=== PATIENT | female | born 1990 | race Caucasian/White ===

== ENCOUNTER 2025-03-30 19:07 | Emergency (ER) | payer MEDICAID, SELFPAY ==
--- OUTSIDE RECORDS SUMMARY | 2016-02-24 10:30 | XMS_ITS | Encounter Summary ---
Author Organization [facility] Address [address] [place] [address] Care Team Providers Care Immunochemist Name Role Phone Provider, No Known Primary Care Provider [phone] Encounter Details Date Type Department Care Team (Latest Contact Info) Description 02/24/2016 10:30 AM EDT Hospital Encounter [facility] [phone] Diet controlled gestational diabetes mellitus in third trimester; Oligohydramnios in third trimester, antepartum, not applicable or unspecified fetus Social History Tobacco Use Types Packs/Day Years Used Date Smoking Tobacco: Former Cigarettes 0.5 21.5 S tarted: 09/13/2003 Smokeless Tobacco: Never Alcohol Use Standard Drinks/Week Comments No 0 (1 standard drink = 0.6 oz pur e alcohol) Abuse Screen Answer Date Recorded Unsafe at Home or Work/School Not on file Feels Threatened by Someone? Not on file 05/2023 Does Anyone Keep You from Co ntacting Others or Doint Things Outside the Home? Not on file 06/21/2023 Physical Sign of Abuse Present Not on file 1 Housing Stability Answer Date Recorded Current Living Arrangements Not on file 05/2023 Potentially Unsafe Housing Conditions Not on bhupinder e 06/21/2023 Family and Community Support Answer Yoan e Recorded Help with Day-to-Day Activities Not on file 06/21/2023 Lonely or Isolated Not on file 06/21/2023 Employment Answer Date Recorded Do you want help finding or keeping work or a nika b? Not on file 06/21/2023 Disabilities Answer Date Recorded Concentrating, Remembering, or Making Decisions Difficulty Not on file 06/21/2023 Doing Errands Independently Difficulty Not on fi le 06/21/2023 Education Answer Date Recorded Help with school or training? Not on file Preferred Language Not on file 06/21/2023 PHQ-2 Answer Date Recorded Patient Health Questionnaire-2 Score 0 03/14/2025 Comments No Sex and Gender Information Value Date Recorded Sex Assigned at Female 03/12/2025 10:52 AM EDT Legal Sex Female 10:20 AM EDT Gender Identity Not on file Sexual Orientation Not on file documented as of this encounter Functional Status documented as of this encounter Plan of Treatment Upcoming Encounters Date Type Department Care Team (Late st Contact Info) Description 04/02/2025 8:00 AM EDT Office Visit [facility] [address] [place] [address] [place] [address] Lynette Hinojosa LCSW [address] [place], [place] [id number] 06/14/2025 8:00 AM EDT Office Visit [facility] [address] [place] [address] [place] [address] Ifeoma Martinez APRN [address] [place] [address] documented as of this encounter Procedures Procedure Name Priority Date/Time Associated Diagnosis Comments US OB LIMITED 1 + FETUSES Routine 02/24/2016 5:13 PM EDT Diet controlled gestational diabetes mellitus in third trimester Oligohydramnios in third trimester, antepartum, not applicable or unspecified fetus documented in this encounter Results * US ob limited 1 + fetuses (02/24/2016 5:13 PM EDT) Anatomical Region Laterality Modality Body Ultrasound 02/24/2016 6:03 PM EDT Narrative 02/25/2016 10:43 AM EDT PAT NAME: TRACIE SWARTZ MED REC#: [id number] DA: 1990 PAT GEND: F PAT TYPE: O EXAM YOAN: [id number] REF PHYS UGO DANIEL Indication ======== QUINTIN assessment, H/O low QUINTIN. History ====== General History Other prev. surgeries: RS&O, Laser/LEEP Other: H/O PCOS and endometriosis Previous Outcomes 1 Para 0 Method ====== Voluson E6, Transabdominal ultrasound examination. Sufficient. ========= Lafleur . Number of fetuses: 1. Dating ====== GA by stated dating 36 w + 4 d ESTEVAN by stated dating : 03/19/2016 Assigned: Dating performed on 10/11/2015, based on the external assessment Assigned GA 36 w + 4 d Assigned ESTEVAN: 03/19/2016 General Evaluation Cardiac activity: present. FHR 131 bpm. movements: present. Presentation: cephalic. Placenta: Placental site: posterior, fundal. Amniotic fluid: Amount of AF: subjectively low. QUINTIN 6.8 cm. Q1 3.8 cm, Q2 1.3 cm, Q3 1.6 cm. Biometry Biometry Calculated by: Hadlock (CBO-PA-EG-FL) QUINTIN 6.8 cm FHR 131 bpm Maternal Structures Uterus and adnexa normal Hydraulic Chair Assembler Comments Single intrauterine is present QUINTIN is subjectively low at 6.77 cm. Impression ========= Decreased amniotic fluid volume. Recommendation Return for follow-up as clinically indicated. Hydraulic Chair Assembler: Clarice Staley RDMS Physician: Electronically signed by: at: 10:43 Procedure Note Michael Nails MD - 02/26/2016 PAT NAME: TRACIE SWARTZ MED REC#: [id number] DA: [id number] PAT GEND: F PAT TYPE: O EXAM YOAN: [id number] REF PHYS UGO DANIEL Indication ======== QUINTIN assessment, H/O low QUINTIN. History ====== General History Other prev. surgeries:RS&O, Laser/LEEP Other:H/O PCOS and endometriosis Previous Outcomes Gravida1 Para0 Method ====== Voluson E6, Transabdominal ultrasound examination. Sufficient. ========= Lafleur . Number of fetuses: 1. Dating ====== GA by stated dating 36 w + 4 d ESTEVAN by stated dating :03/19/2016 Assigned:Dating performed on 10/11/2015, based on the externalassessment Assigned GA34 w + 4 d Assigned ESTEVAN:03/19/2016 General Evaluation Cardiac activity: present. FHR 131 bpm. movements: present. Presentation: cephalic. Placenta: Placental site: posterior, fundal. Amniotic fluid: Amount of AF: subjectively low. QUINTIN 6.8 cm. Q1 3.8 cm, Q21.3 cm, Q3 1.6 cm. Biometry Biometry Calculated by:Hadlock (ILQ-US-RD-FL) AFI6.8 cm LQE357 bpm Maternal Structures Uterus and adnexa normal Hydraulic Chair Assembler Comments Single intrauterine is present QUINTIN is subjectively low at 6.77 cm. Impression ========= Decreased amniotic fluid volume. Recommendation Return for follow-up as clinically indicated. Hydraulic Chair Assembler: Clarice Staley RDMS Physician: Electronically signed by: at: 10:43 us Ugo Daniel MD G US ORDERABLES Final Re sult documented in this encounter Visit Diagnoses Diagnosis Diet controlled gestational diabetes mellitus in third trimester Oligohydramnios in third trimester, antepartum, not applicable or unspecified fetus documented in this encounter Care Teams Immunochemist Relationship Specialty Start Date End Date Provider, No Known [place] [id number] PCP - General 02/13/16 02/26/16 documented as of this encounter
--- OUTSIDE RECORDS SUMMARY | 2016-06-04 09:32 | XMS_ITS | Encounter Summary ---
Author Organization [facility] Address [address] [place] [address] Care Team Providers Care Underground Heavy Equipment Operator Name Role Phone Brandon Griffin MD Primary Care Provider [phone] Encounter Details Date Type Department Care Team (Latest Contact Info) Description 06/04/2016 9:32 AM EDT Hospital Encounter [facility] [phone] Encounter for insertion of intrauterine contraceptive device; MIrena Social History Tobacco Use Types Packs/Day Years [...] Description 04/02/2025 8:00 AM EDT Office Visit [facility] [address] [place] [address] [place] [address] Lynette Hinojosa LCSW [address] [place] [address] 06/14/2025 8:00 AM EDT Office Visit [facility] [address] [place] [address] [place] [address] Ifeoma Martinez APRN [address] [place] [address] documented as of this encounter Procedures Procedure Name Priority Date/Time Associated Diagnosis Comments US NON-OB TRANSVAGINAL Routine 06/04/2016 10:35 AM EDT Encounter for insertion of intrauterine contraceptive device MIrena documented in this encounter Results * US non-ob transvaginal (06/04/2016 10:35 AM EDT) Anatomical Region Laterality Modality Body Ultrasound 06/04/2016 9:54 AM EDT Narrative 06/04/2016 5:02 PM EDT PAT NAME: TRACIE SWARTZ MED REC#: [id number] DA: 1990 PAT GEND: F PAT TYPE: O EXAM YOAN: [id number] REF PHYS UGO DANIEL Indication ======== Localization of IUD. History ====== General History Other prev. surgeries: RS&O, Laser/LEEP Other: H/O PCOS and endometriosis Previous Outcomes 1 Para 0 Method ====== Voluson E6, Transvaginal ultrasound examination, Color Doppler flow performed, 3D ultrasound examination. Adequate view. Uterus ====== Uterus: Normal Uterus position: Anteverted Myometrium: Homogeneous Endometrium: Uniform Cervix details: Normal Uterus long 4.7 cm Uterus ap 3.9 cm Uterus tr 4.5 cm Uterus vol 43.2 cm Endometrial thickness, total 4.9 mm Cervical length 3.62 cm Right Ovary ========= Rt ovary: Not visualized Rt ovary details: not seen consistent with stated history of prior oophorectomy Left Ovary ======== Lt ovary: Normal Lt ovary D1 4.1 cm Lt ovary D2 3.2 cm Lt ovary D3 2.8 cm Lt ovary vol 19.3 cm [place] ========= Normal. Shift Supervisor Melting Comments The IUD appears to be correctly placed within the endometrial cavity. However, the reading physician will further review with 3D imaging. Impression ========= The uterus appears sonographically normal in size, shape and morphology. Thin, uniform endometrial stripe. Significant endometrial pathology is unlikely. There is an appropriately placed endometrial IUD. The right ovary is not seen, consistent with history of prior right oophorectomy. The left ovary appear sonographically normal in size, shape and morphology. Recommendation Follow-up as clinically indicated. Shift Supervisor Melting: Cindy Bonilla RDNC Physician: Michael Nails MD Electronically signed by: Michael Nails MD at: 17:02 Procedure Note Michael Nails MD - 06/04/2016 PAT NAME: TRACIE SWARTZ MED REC#: [id number] DA: 1990 PAT GEND: F PAT TYPE: O EXAM YOAN: [id number] REF PHYS UGO DANIEL Indication ======== Localization of IUD. History ====== General History Other prev. surgeries:RS&O, Laser/LEEP Other:H/O PCOS and endometriosis Previous Outcomes Gravida1 Para0 Method ====== Voluson E6, Transvaginal ultrasound examination, Color Doppler flowperformed, 3D ultrasound examination. Adequate view. Uterus ====== Uterus:Normal Uterus position:Anteverted Myometrium:Homogeneous Endometrium:Uniform Cervix details:Normal Uterus long4.7 cm Uterus ap3.9 cm Uterus tr4.5 cm Uterus vol43.2 cm Endometrial thickness, total4.9 mm Cervical length3.62 cm Right Ovary ========= Rt ovary:Not visualized Rt ovary details:not seen consistent with stated history of prioroophorectomy Left Ovary ======== Lt ovary:Normal Lt ovary D14.1 cm Lt ovary D23.2 cm Lt ovary D32.8 cm Lt ovary vol19.3 cm [place] ========= Normal. Shift Supervisor Melting Comments The IUD appears to be correctly placed within the endometrial cavity.However, the reading physician will further review with 3D imaging. Impression ========= The uterus appears sonographically normal in size, shape and morphology.Thin, uniform endometrial stripe. Significant endometrial pathology is unlikely. There is an appropriately placed endometrial IUD. The rightovary is not seen, consistent with history of prior right oophorectomy.The left ovary appear sonographically normal in size, shape and morphology. Recommendation Follow-up as clinically indicated. Shift Supervisor Melting: Cindy Bonilla RDMS Physician: Michael Nails MD Electronically signed by: Michael Nails MD at: 17:02 us Ugo Daniel MD [facility] US ORDERABLES Final Re sult documented in this encounter Visit Diagnoses Diagnosis Encounter for insertion of intrauterine contraceptive device MIrena Presence of intrauterine contraceptive device documented in this encounter Care Teams Underground Heavy Equipment Operator Relationship Specialty Start Date End Date Brandon Griffin MD [address] [place] [address] PCP - General Family Medicine 02/27/16 11/11/17 documented as of this encounter
--- OUTSIDE RECORDS SUMMARY | 2024-05-24 04:30 | XMS_ITS ---
Author Organization [facility] Address [address] [place] [id number] Care Team Providers Care Industrial Technologist Name Role Phone Tracie Weathers Primary Care Provider [facility] [place] [id number] Unavailable [phone] REASON FOR VISIT Not Feeling Well Encounters Encounter Location Date Provider Diagnosis [id number] [place] [address] 05/24/2024 [id number] Provider Plan Of Treatment No Information Progress Notes * Tracie LÓPEZDOB:1990 (34 yo F)Acc No.[id number]:05/24/2024 Patient: Tracie CAMARGO Provider: 1 5102 Provider :1990 A ge:34 Y S ex:Female Date:05/24/2024 External Visit ID:[id number] [facility] Pcp:Tracie Weathers Subjective: * Chief Complaints: * 1 . Not Feeling Well. * Medical History: Objective: * Vitals: Assessment: Plan: * Treatment: * Billing Information: * Visit Code: * Procedure Codes: Care Plan Details* * Electronic signature of 1510 2 Provider on 03/30/2025 at 06:57 PM CDT Sign off status: Pending * Provider: 1 5102 Provider Date: 05/24/2024 Generated for Tammy thompson/Sharon/eTransmitting on: 03/30/2025 06:57 PM CDT
--- OUTSIDE RECORDS SUMMARY | 2025-03-14 09:00 | XMS_ITS | Encounter Summary ---
Author Organization [facility] Address [address] [place] [id number] Care Team Providers Care Back Hanger Name Role Phone Bárbara Gtz MD Primary Care Provider +- Reason for Referral * Behavorial Health/Psych (Routine) - Authorized Specialty Diagnoses / Procedures Referred By Contac t Referred To Contact Behavioral Health Diagnoses Reactive depression Procedures MD OFFICE/OUTPATIENT NEW MODERATE MDM 45 MINUTES Ifeoma Martinez APRN [address] [place] [address] Phone: tel: fax: Lynette Hinojosa LCSW [address] [place] [address] Phone: tel: fax: Referral ID Status Reason Start Date Expiration Date Visits Requested Visits Authorized [id number] Authorized Specialty Services Required 03/14/2025 06/13/2026 1 1 Reason for Visit * Reason Comments Establish Care Encounter Details Date Type Department Care Team (Late st Contact Info) Description 03/14/2025 9:00 AM EDT Office Visit [facility] [address] [place] [address] [phone] Ifeoma Martinez APRN [address] [place] [address] Cigarette smoker (Primary Dx); Reactive depression; History of bariatric surgery; Seizure disorder; Gastroesophageal reflux disease without esophagitis; PCOS (polycystic ovarian syndrome); Persistent depressive disorder; High cholesterol; Encounter to establish care Social History Tobacco Use Types Packs/Day Years Used Date Smoking Tobacco: Former Cigarettes 0.5 21.5 S tarted: 09/13/2003 Smokeless Tobacco: Never Tobacco Cessation:Counseling Given: No Alcohol Use Standard Drinks/Week Comments No 0 [...] on file documented as of this encounter Last Filed Vital Signs Vital Sign Reading Time Taken Comments Blood Pressure 104/70 03/14/2025 9:00 AM EDT Pulse 89 03/14/2025 9:00 AM EDT Temperature 36.9 C (98.4 F) 03/14/2025 9:00 AM EDT Respiratory Rate - - Oxygen Saturation 99% 03/14/2025 9:00 AM EDT Inhaled Oxygen Concentration - - Weight 67.1 kg (148 lb) 03/14/2025 9:00 AM EDT Height 165.1 cm (5' 5 ) 03/14/2025 9:00 AM EDT Body Mass Index 24.63 03/14/2025 9:00 AM EDT documented in this encounter Functional Status documented as of this encounter Progress Notes * Ifeoma Martinez APRN - 03/20/2025 9:01 AM EDTAssociated Problem(s): High cholesterol In review of prior notes patient has suffered from familial hypercholesterolemia. Subsequently utilizing rosuvastatin 40 mg nightly. Patient's lipids last checked 3 months ago with total cholesterol 192, triglycerides 61, HDL 68 and LDL 113 * Ifeoma Martinez APRN - 03/20/2025 8:57 AM EDTAssociated Problem(s): PCOS (polycystic ovarian syndrome) Followed regularly by [facility]. She has IUD in place to help with period regulation. * Ifeoma Martinez APRN - 03/14/2025 9:35 AM EDTAssociated Problem(s): Cigarette smoker And is half pack per day smoker since 2003. She quit smoking two weeks ago for surgery * Ifeoma Martinez APRN - 03/14/2025 9:27 AM EDTAssociated Problem(s): Persistent depressive disorder Patient has been grieving the loss of her for the last 2 years, but today discloses she hasnever really truly dealt with the , just surviving, staying strong and going through the motions for their son. Patient does utilize SSRI therapy, sertraline 50 mg daily. Patient states she has not fully coped with her grief through any outlets such as therapy or counseling services. She is interested in referral to behavioral health today for grief counseling, feels as though her current Zoloft dosing is providing adequate benefit in that regard. Patient's initial onset of anxiety depression was in the early with an aunt's suicide during that time. She attended psychotherapy [id number] through 9th grade and was also started on Zoloft at that time. Initially Zoloft was restarted in 2015 due to depression and anxiety but at that time patient's symptoms resolved within a few months and the medication was stopped. Patient's chief complaints with depression anxiety include irritability and physical tension. - Continue use of Zoloft 50 mg daily - [facility] LCS[facility] * Ifeoma Martinez APRN - 03/14/2025 9:19 AM EDTAssociated Problem(s): GERD (gastroesophageal reflux disease) Patient with very rare episode of acid reflux that responds well to Pepcid when needed * Ifeoma Martinez APRN - 03/14/2025 9:18 AM EDTAssociated Problem(s): History of bariatric surgery Patient underwent sleeve gastrectomy in 2013. Patient's highest weight was 300 pounds. Her current weight is 148 pounds in office today, patient continues to utilize Wegovy 1.7 mg weekly for the lastcouple of years. In a few weeks she is having breast augmentation and skin removal. As a result of upcoming surgery she has held her GLP-1 medication since March 08. She does plan to restart GLP-1 medi cation postoperatively with clearance from surgery. - When patient is ready to resume GLP-1 medication will send prescription to [facility] pharmacy * Ifeoma Martinez APRN - 03/14/2025 9:16 AM EDTAssociated Problem(s): Seizure disorder Patient diagnosed with seizure disorder in her early 20s. She states that over the course of her diagnosis she has only experienced 3 seizures, the last one being close to 20 years ago. She is maintained on regimen of Trileptal 300 mg twice daily. Patient has plans to continue following with her neurologist yearly in [place]. * Ifeoma Martinez APRN - 03/14/2025 9:00 AM EDT Images from the original note were not included. Office Note Name: Tracie Griffith : 1990 Chief Complaint Establish Care Subjective History of Present Illness: Tracie Griffith is a 34 y.o. female who presents today to establish care. Patient has chronic issues including seizure disorder, GERD and PCOS. Patient recently moving back to [place] from [place] after the unexpected of her in 2022. Patient has been grieving the loss of her for the last 2 years, but today discloses she has never really truly dealt with the , just surviving, staying strong and going through the motions for their son. Patient does utilize SSRI therapy, sertraline 50 mg daily. Patient states she has not fully coped with her grief through any outlets such as therapy or counseling services. She is interested in referral to behavioral health today for grief counseling, feels as though her current Zoloft dosing is providing adequate benefit in that regard. Patient's initial onset of anxiety depression was in the early with an aunt's suicide during that time. She attended psychotherapy from 5th through 9th grade and was also started on Zoloftat that time. Initially Zoloft was restarted in 2015 due to depression and anxiety but at that time patient's symptoms resolved within a few months and the medication was stopped. Patient's chief complaints with depression anxiety include irritability and physical tension. Patient had recent annual physical exam with her prior PCP in [place] Oct 2024. She does have a smoking history, half pack per day for the last 15 years. She is recently stopped smoking in preparation for upcoming plastic surgery. Patient underwent sleeve gastrectomy in 2013. Patient's highest weight was 300 pounds. Her current weight is 148 pounds in office today, patient continues to utilize Wegovy 1.7 mg weekly for the last couple of years. In a few weeks she is having breast augmentation and skin removal. As a result of upcoming surgery she has held her GLP-1 medication since March 08. She does plan to restart GLP-1 medication postoperatively with clearance from surgery. Patient diagnosed with seizure disorder in her early 20s. She states that over the course of her diagnosis she has only experienced 3 seizures, the last one being close to 20 years ago. She is maintained on regimen of Trileptal 300 mg twice daily. Patient has plans to continue following with her neurologist yearly in [place]. She has no further complaints or concerns today Review of Systems Constitutional: Negative for fatigue. Respiratory: Negative for chest tightness, shortness of breath and wheezing. Cardiovascular: Negative for chest pain, palpitations and leg swelling. Gastrointestinal: Positive for GERD. Negative for abdominal pain, constipation, diarrhea, nausea and vomiting. Endocrine: Negative for polydipsia and polyuria. Musculoskeletal: Negative for arthralgias. Neurological: Negative for dizziness, weakness, light-headedness and headache. Psychiatric/Behavioral: Positive for stress. Negative for agitation, self- injury, sleep disturbance, suicidal ideas and depressed mood. The patient is not nervous/anxious. Objective Past Medical History: Diagnosis Date Abnormal Pap smear of cervix Had hpv Anxiety disorder 2000 Bipolar disorder 1999 Depression Endometriosis GERD (gastroesophageal reflux disease) 2010 High cholesterol 2007 HPV (human papilloma virus) infection Hx gestational diabetes 2016 Polycystic ovary syndrome Seizure disorder 2014 Varicella Past Surgical History: Procedure Laterality Date BARIATRIC SURGERY 2014 CERVICAL CERCLAGE 09/2015 Dr. Howell CERVICAL CONIZATION W/ LASER 2007 Dr. Norris CERVICAL CONIZATION W/ LASER 2008 Dr. Norris ENDOSCOPY 2017 Normal scope - done in [place] GASTRIC SLEEVE LAPAROSCOPIC 03/30/2014 Dr. Anderson LAPAROSCOPY DIAGNOSTIC / BIOPSY / ASPIRATION / LYSIS 11/2011 Dr. Norris LAPAROSCOPY DIAGNOSTIC / BIOPSY / ASPIRATION / LYSIS 10/2012 Dr. Norris LAPAROTOMY SALPINGO OOPHORECTOMY Right 2000 torsion OVARIAN CYST SURGERY TONSILLECTOMY 1992 Family History Problem Relation Age of Onset Diabetes Father Hyperlipidemia Father Kidney disease Father Kidney transplant in 2022 Hyperlipidemia Maternal Grandfather Diabetes Maternal Grandmother Diabetes Paternal Grandmother Vital Signs BP 104/70 (BP Location: Left arm, Patient Position: Sitting, Cuff Size: Adult) Pulse 89 Temp 98.4 ??F (36.9 ??C) (Temporal) Ht 165.1 cm (65 ) Wt 67.1 kg (148 lb) SpO2 99% BMI 24.63 kg/m?? Estimated body mass index is 24.63 kg/m?? as calculated from the following: Height as of this encounter: 165.1 cm (65 ). Weight as of this encounter: 67.1 kg (148 lb). Facility age limit for growth %stefan is 20 years. Physical Exam Vitals reviewed. Constitutional: Appearance: Normal appearance. HENT: Head: Normocephalic and atraumatic. Right Ear: Tympanic membrane, ear canal and external ear normal. Left Ear: Tympanic membrane, ear canal and external ear normal. Nose: Nose normal. Mouth/Throat: Mouth: Mucous membranes are moist. Pharynx: Oropharynx is clear. Eyes: Conjunctiva/sclera: Conjunctivae normal. Pupils: Pupils are equal, round, and reactive to light. Cardiovascular: Rate and Rhythm: Normal rate and regular rhythm. Pulses: Normal pulses. Heart sounds: Normal heart sounds. Pulmonary: Effort: Pulmonary effort is normal. Breath sounds: Normal breath sounds. Abdominal: General: Bowel sounds are normal. Palpations: Abdomen is soft. Musculoskeletal: General: Normal range of motion. Cervical back: Neck supple. Skin: General: Skin is warm and dry. Neurological: Mental Status: She is alert and oriented to person, place, and time. Psychiatric: Mood and Affect: Mood normal. Behavior: Behavior normal. POCT Results (if applicable): Results for orders placed or performed in visit on 09/07/16 GTT Fasting Collection Time: 09/07/16 10:40 AM Specimen: Blood Result Value Ref Range Glucose, GTT - Fasting 87 65 - 99 mg/dL GTT 1 Hour Collection Time: 09/07/16 10:40 AM Specimen: Blood Result Value Ref Range Glucose, GTT - 1 Hour 180 65 - 199 mg/dL GTT 2 Hour Collection Time: 09/07/16 10:40 AM Specimen: Blood Result Value Ref Range Glucose, GTT - 2 Hour 72 65 - 139 mg/dL Assessment and Plan Diagnoses and all orders for this visit: 1. Cigarette smoker (Primary) Assessment & Plan: And is half pack per day smoker since 2003. She quit smoking two weeks ago for surgery 2. Reactive depression Assessment & Plan: Patient has been grieving the loss of her for the last 2 years, but today discloses she hasnever really truly dealt with the , just surviving, staying strong and going through the motions for their son. Patient does utilize SSRI therapy, sertraline 50 mg daily. Patient states she has not fully coped with her grief through any outlets such as therapy or counseling services. She is interested in referral to behavioral health today for grief counseling, feels as though her current Zoloft dosing is providing adequate benefit in that regard. Patient's initial onset of anxiety depression was in the early s with an aunt's suicide during that time. She attended psychotherapy avzh4nd through 9th grade and was also started on Zoloft at that time. Initially Zoloft was restarted in 2016 due to depression and anxiety but at that time patient's symptoms resolved within a few months and the medication was stopped. Patient's chief complaints with depression anxiety include irritability and physical tension. - Continue use of Zoloft 50 mg daily - Referral placed to behavioral health, Lynette Hinojosa LCSW Orders: - Ambulatory Referral to Behavioral Health 3. History of bariatric surgery Assessment & Plan: Patient underwent sleeve gastrectomy in 2013. Patient's highest weight was 300 pounds. Her current weight is 148 pounds in office today, patient continues to utilize Wegovy 1.7 mg weekly for the lastcouple of years. In a few weeks she is having breast augmentation and skin removal. As a result of upcoming surgery she has held her GLP-1 medication since March 08. She does plan to restart GLP-1 medi cation postoperatively with clearance from surgery. - When patient is ready to resume GLP-1 medication will send prescription to [facility] pharmacy 4. Seizure disorder Assessment & Plan: Patient diagnosed with seizure disorder in her early 20s. She states that over the course of her diagnosis she has only experienced 3 seizures, the last one being close to 20 years ago. She is maintained on regimen of Trileptal 300 mg twice daily. Patient has plans to continue following with her neurologist yearly in [place]. 5. Gastroesophageal reflux disease without esophagitis Assessment & Plan: Patient with very rare episode of acid reflux that responds well to Pepcid when needed 6. PCOS (polycystic ovarian syndrome) Assessment & Plan: Followed regularly by [facility]. She has IUD in place to help with period regulation. 7. Persistent depressive disorder Assessment & Plan: Patient has been grieving the loss of her for the last 2 years, but today discloses she hasnever really truly dealt with the , just surviving, staying strong and going through the motions for their son. Patient does utilize SSRI therapy, sertraline 50 mg daily. Patient states she has not fully coped with her grief through any outlets such as therapy or counseling services. She is interested in referral to behavioral health today for grief counseling, feels as though her current Zoloft dosing is providing adequate benefit in that regard. Patient's initial onset of anxiety depression was in the early 1999's with an aunt's suicide during that time. She attended psychotherapy [id number] through 9th grade and was also started on Zoloft at that time. Initially Zoloft was restarted in 2015 due to depression and anxiety but at that time patient's symptoms resolved within a few months and the medication was stopped. Patient's chief complaints with depression anxiety include irritability and physical tension. - Continue use of Zoloft 50 mg daily - Referral placed to [facility] Lynette adkins LCSW 8. High cholesterol Assessment & Plan: In review of prior notes patient has suffered from familial hypercholesterolemia. Subsequently utilizing rosuvastatin 40 mg nightly. Patient's lipids last checked 3 months ago with total cholesterol 192, triglycerides 61, HDL 68 and LDL 113 9. Encounter to establish care BMI is within normal parameters. No other follow-up for BMI required. Advanced Care Planning: Patient does not have an advance directive, information provided. Smoking Cessation: less than 3 minutes spent counseling Agreeable to stop Follow Up Return in about 3 months (around 06/14/2025) for Next scheduled follow up. Ifeoma Martinez APRN documented in this encounter Plan of Treatment Upcoming Encounters Date Type Department Care Team (Late st Contact Info) Description 04/02/2025 8:00 AM EDT Office Visit [facility] [address] [place] [address] [place] [phone] Lynette Hinojosa LCSW [address] [place] [phone] 06/14/2025 8:00 AM EDT Office Visit [facility] [address] [place] [address] [place] [phone] Ifeoma Martinez APRN [address] [place] [phone] Scheduled Referrals Name Type Priority Associated Diagnoses Order Schedule Ambulatory Referral to [facility] Referral Routine Reactive depression Ordered: 03/14/2025 documented as of this encounter Visit Diagnoses Diagnosis Cigarette smoker- Primary Tobacco use disorder Reactive depression History of bariatric surgery Bariatric surgery status Seizure disorder Unspecified epilepsy without mention of intractable epilepsy Gastroesophageal reflux disease without esophagitis Esophageal reflux PCOS (polycystic ovarian syndrome) Polycystic ovaries Persistent depressive disorder High cholesterol Pure hypercholesterolemia Encounter to establish care documented in this encounter Care Teams Back Hanger Relationship Specialty Start Date End Date Bárbara Gtz MD PCP - General Internal Medicine 11/12/17 documented as of this encounter
--- NOTE | 2025-03-30 19:50 | XR_ITS ---
PROCEDURE INFORMATION: Exam: XR Chest Exam date and time: 03/30/2025 8:28 PM Age: 34 years old Clinical indication: Shortness of breath; Denies preg, recent HX mommy makeover surg, breast implants; Additional info: Short of breath TECHNIQUE: Imaging protocol: Radiologic exam of the chest. Views: 1 view. COMPARISON: No relevant prior studies available. FINDINGS: Lungs: Unremarkable. No consolidation. Pleural spaces: Unremarkable. No pleural effusion. No pneumothorax. Heart/Mediastinum: Unremarkable. No cardiomegaly. Bones/joints: Unremarkable. IMPRESSION: No acute findings.
--- NOTE | 2025-03-30 19:54 | ED_ITS ---
<Statement entered by Tracie Denny DO - 03/31/25 01:54> I was consulted by the YAJAIRA, and we discussed the complexity of problems being addressed. I approve the treatment and management plan for this patient's care in the emergency department, thus performing a substantial portion of the medical decision making. Tracie Denny DO Discharge Plan Disposition Patient Disposition: Home, Self-Care Referrals Follow up/Referrals: Ifeoma Martinez APRN [Primary Care Provider, Medical] - See instructions Activity Restrictions/Add. Instructions Additional Instructions/Restrictions: Follow-up with your primary care about your elevated blood pressure. Return to the ED if any other problems or concerns. Clinical Impressions Clinical Impression: Acute dehydration, Borderline high blood pressure Instructions Patient Instructions: DI for Dehydration -- Adult, DI for High Blood Pressure Print Language Print Language: Georgian Discharge ED Provider: Tracie Denny General Adult HPI General Chief complaint: Dizziness Stated complaint: lightheaded,abd pain,nausea Time Seen by Provider: 03/30/25 19:41 History of Present Illness HPI narrative: 34-year-old female presents to the ED today for complaint of feeling lightheaded and having nausea over the last couple days. Patient says she will have surgery and then end up taking antibiotics and having a seizure after she did not have a seizure after her last surgery. She recently had a mommy makeover including tummy tuck and breast augmentation surgery. She still has a NIRAJ drain that is draining 30 to 40 mL every 3-4 hours. She goes back to said to the plastic surgeon to have this removed. She has had no fevers. She has been having a lot of dizziness and feeling hot. She is having nausea as well with no vomiting. She feels like she is not getting enough to drink because of the nausea. She is post to take her last dose of Lovenox today. Her surgical sites look okay with no drainage. She does have a history of seizures and takes Trileptal 600 twice a day. Related Data Allergies Allergy/AdvReac Type Severity Reaction Status Date / Time No Known Allergies Allergy Verified 03/30/25 20:20 [facility] Disclaimer: The information contained in this section may have been updated after the patient was seen, as this information can be updated by other users. Social History Smoking Status: Never smoker alcohol intake: former current occupational status: other Travel in the last 8 weeks?: None ROS Obtained: Yes Systems reviewed as appropriate & no additional complaints except as documented Constitutional Constitutional: Reports as per HPI Physical Exam General General appearance: alert Head Head exam: atraumatic and normocephalic Eye Eye exam: Present PERRL and EOMI ENT ENT exam: Present normal oropharynx and mucous membranes moist Neck Neck exam: Present full ROM and trachea midline Respiratory Respiratory exam: Present normal lung sounds bilaterally Cardiovascular Cardiovascular exam: Present regular rate, normal rhythm, normal heart sounds, +S1 and +S2 Abdominal Exam Abdominal exam: Present soft and normal bowel sounds Extremities Exam Extremities exam: Present normal inspection, full ROM and normal capillary refill Neurological Exam Neurological exam: Present alert, oriented X3 and normal gait Skin Skin exam: Present warm, dry and intact Medical Decision Making Medical Records Screening: Per USPSTF and CDC recommendations, given the prevalence of disease in our region, it is our hospital?s policy to screen for HIV and viral Hepatitis for all patients aged 18 and over and those with ongoing risk factors. Jake Inquiry Pt receiving controlled substance: No Vital Signs: 03/30/25 20:50 03/30/25 22:48 Temperature 98.6 F 98 F Temperature Source Oral Oral Pulse Rate 79 Pulse Rate [Radial] 80 Respiratory Rate 21 15 Blood Pressure 151/97 H Blood Pressure [Right Arm] 158/109 H Blood Pressure Mean [Right Arm] 125 Blood Pressure Source Automatic Cuff Blood Pressure Position Sitting Blood Pressure Position [Right Arm] Sitting 02 Sat by Pulse Oximetry 99 Oxygen Delivery Method Room Air Room Air Lab Data Lab Results 03/30/25 19:50: WBC 6.9, RBC 3.99 L, Hgb 13.2, Hct 38.8, MCV 97.2, MCH 33.1 H, MCHC 34.0, RDW 11.8, Plt Count 303, MPV 8.7, Neut % (Auto) 67.3, Lymph % (Auto) 21.0, Laurel % (Auto) 7.5, Eos % (Auto) 3.7, Baso % (Auto) 0.4, Neut # (Auto) 4.7, Lymph # (Auto) 1.5, Laurel # (Auto) 0.5, Eos # (Auto) 0.3, Baso # (Auto) 0.0, Sodium 137, Potassium 3.7, Chloride 103, Carbon Dioxide 28, Anion Gap 9.7, BUN 8, Creatinine 0.60, Estimated GFR 113, Est GFR ( Amer) 137, Glucose 96, Calcium 9.6, Magnesium 2.1, Total Bilirubin 0.4, AST 52 H, ALT 77, Alkaline Phosphatase 64, Troponin I < 0.01, Total Protein 6.9, Albumin 4.2, Globulin 2.7, Albumin/Globulin Ratio 1.6, Lipase 45 03/30/25 20:10: Urine Color Yellow, Urine Appearance Sl cloudy, Urine pH 6.0, Ur Specific Raven[place] 1.015, Urine Protein Negative, Urine Glucose (UA) Negative, Urine Ketones Negative, Urine Blood Negative, Urine Nitrate Negative, Urine Bilirubin Negative, Urine Urobilinogen 0.2, Ur Leukocyte Esterase Negative, Urine RBC Occasional, Urine WBC Occasional, Ur Squamous Epith Cells Occasional, Urine Bacteria 2+, Urine Mucus 2+ 03/30/25 19:50 03/30/25 19:50 Orders (Tests/Meds): ED MEDICATIONS Discontinued Medications Generic Name Dose Route Start Last Admin Trade Name Freq PRN Reason Stop Dose Admin Acetaminophen 1,000 mg 03/30/25 19:52 03/30/25 20:21 Acetaminophen 1,000mg/100ml Vial IV 03/30/25 19:53 1,000 mg ONCE ONE Administration Famotidine 20 mg 03/30/25 19:49 03/30/25 20:23 Famotidine 20mg/2ml Vial IV 03/30/25 19:50 20 mg ONCE ONE Administration Sodium Chloride 1,000 mls @ 999 mls/hr 03/30/25 19:49 03/30/25 20:21 Sod Chlor 0.9% 1000ml Bag IV 03/30/25 20:49 999 mls/hr .Q1H1M ONE Administration Sodium Chloride 8 ml 03/30/25 19:49 Sodium Chloride 0.9% 10ml Vial IV 04/29/25 19:48 NEEDED PRN dilute pepcid ORDERS Category Date Time Status Chest XR -- portable [XR chest portable] Stat Exams 03/30/25 19:50 Completed CBC [Complete Blood Count Auto Diff] Stat Lab 03/30/25 19:50 Completed Comprehensive Metabolic Panel Stat Lab 03/30/25 19:50 Completed Lipase Stat Lab 03/30/25 19:50 Completed Magnesium Stat Lab 03/30/25 19:50 Completed Trop I [Troponin I] Stat Lab 03/30/25 19:50 Completed Urinalysis and Microscopic Stat Lab 03/30/25 20:10 Completed Urine Culture Stat Micro 03/30/25 20:10 Received Medical Decision Narrative: patient is a 34-year-old female presenting to the emergency department for evaluation of dizziness, nausea feeling that she may have a seizure that comes and goes. Patient is hemodynamically stable and nontoxic-appearing upon arrival, afebrile. Differential diagnosis includes dehydration, viral illness, surgery complication, pneumonia, UTI, among others. Workup will be conducted with hematologic labs, specific imaging. Initial inventions include crystalloid bolus. Initial workup reviewed by me hematologic labs are remarkable for nothing acute. Awaiting imaging results. Chest x-ray is normal. Patient feels much better. Discussed return precautions and following up with her PCP about her blood pressure. Patient safe for discharge home. Critical Care Critical Care Time Critical Care Time: No
--- OUTSIDE RECORDS SUMMARY | 2025-03-30 19:57 | XMS_ITS | Encounter Summary ---
Author Organization [facility] Address [address] [place] [address] Care Team Providers Care Software Asset Management Analyst Name Role Phone Bárbara Gtz MD Primary Care Provider +1- Encounter Details Date Type Department Care Team (Latest Contact Info) Description 03/14/2025 Travel Social History Tobacco Use Types Packs/Day Years [...] Description 04/02/2025 8:00 AM EDT Office Visit [facility] [address] [place] [address] [place] [address] Lynette Hinojosa LCSW [address] [place] [address] 06/14/2025 8:00 AM EDT Office Visit [facility] [address] [place] [address] [place] [phone] Ifeoma Martinez APRN [address] [place] [address] documented as of this encounter Visit Diagnoses Not on filedocumented in this encounter Care Teams Software Asset Management Analyst Relationship Specialty Start Date End Date Bárbara Gtz MD PCP - General Internal Medicine 11/12/17 documented as of this encounter
--- OUTSIDE RECORDS SUMMARY | 2025-03-30 19:57 | XMS_ITS | Clinical Summary ---
Author Organization [facility] Address [address] [place] [address] Care Team Providers Care Chain Link Fence Installer Name Role Phone Bárbara Gtz MD Primary Care Provider [phone] Allergies No known active allergies Medications loratadine (CLARITIN) 10 MG tablet Take 1 tablet by mouth Daily. Active Docusate Sodium (COLACE PO) Take 1 tablet by mouth daily. Active famotidine (PEPCID) 20 MG tablet Take 1 tablet by mouth Daily. Active OXcarbazepine (TRILEPTAL) 300 MG tablet Take 1 tablet by mouth 2 (Two) Times a Day. Active multivitamin (DAILY ERIN) tablet tablet Take by mouth Daily. Active folic acid (FOLVITE) 1 MG tablet Take 3 tablets by mouth Daily. 03/20/20 21 Active rosuvastatin (CRESTOR) 40 MG tablet Take 1 tablet by mouth Every Night. 03/29/20 21 Active levonorgestrel (MIRENA) 20 MCG/24HR IUD 1 each by Intrauterine route Every 6 (Six) Years. 04/21/20 21 027 Active sertraline (ZOLOFT) 50 MG tablet Take 1 tablet by mouth Daily. 04/21/20 24 025 Active metFORMIN (GLUCOPHAGE) 1000 MG tablet Take 1 tablet by mouth. 10/16/19 25 026 Active HYDROcodone-ac etaminophen (NORCO) 7.5-325 MG per tablet 02/23/20 25 Active enoxaparin sodium (LOVENOX) 30 MG/0.3ML solution prefilled syringe syringe 02/24/20 25 Active cephalexin (KEFLEX) 500 MG capsule TAKE 1 CAPSULE BY MOUTH FOUR TIMES DAILY. START 1 DAY BEFORE SURGERY 02/23/20 25 Active diazePAM (VALIUM) 5 MG tablet Take 1 tablet by mouth Every 8 (Eight) Hours As Needed for Muscle Spasms. 02/23/20 25 Active Semaglutide-We ight Management (Wegovy) 1.7 MG/0.75ML solution auto-injector INJECT 1.7 MG INTO THE SKIN IN THE ABDOMEN, THIGH, OR UPPER ARM ONCE A WEEK 11/27/19 22 025 Discontinu ed(Reorder ) Semaglutide-We ight Management (Wegovy) 1.7 MG/0.75ML solution auto-injector Inject 0.75 mL under the skin into the appropriate area as directed 1 (One) Time for 1 dose. 0.75 mL 3 03/20/20 25 025 Active Problems Problem Noted Date Diagnosed Date Persistent depressive disorder 03/14/2025 Assessment & Plan (03/20/2025 8:58 AM EDT): Patient has been grieving the loss of [...] 50 mg daily - Referral placed to Lynette woodruff LCSW History of bariatric surgery 03/14/2025 Assessment & Plan (03/20/2025 8:57 AM EDT): Patient underwent sleeve gastrectomy in 2013. Patient's [...] GLP-1 medication postoperatively with clearance from surgery. - When patient is ready to resume GLP-1 medication will send prescription to [facility] pharmacy Encounter to establish care 03/14/2025 PCOS (polycystic ovarian syndrome) 03/14/2025 Assessment & Plan (03/20/2025 8:57 AM EDT): Followed regularly by [facility]. She has IUD in place to help with period regulation. Cigarette smoker 11/25/2020 Assessment & Plan (03/20/2025 8:59 AM EDT): And is half pack per day smoker since 2003. She quit smoking two weeks ago for surgery Mirena 04/23/2016 Overview (04/21/2021): Placed 04/23/2016 and replaced on 04/21/21 Annual [facility] exam 01/28/2016 Overview (11/26/2020): SCREENING TESTS Year 2012 2013 2014 2015 2016 2017 2018 2018 2019 2020 2021 2022 2023 2024 2025 2026 2027 2028 2029 2030 2031 2032 Age PAP 2 8 4 5 - - 3 - - 3 HPV high risk Mammogram MARKEL score Breast MRI Lipids Vitamin D Colonoscopy DEXA Ovarian Screen Enter the month test was performed. If month not known, enter X' Black numbers = normal results Red numbers = abnormal results Black X = patient reported normal Red X - patient reported abnormal Referred by: Profession: Works as PAR with [employer] Other info: GERD (gastroesophageal reflux disease) 6 Assessment & Plan (03/20/2025 8:59 AM EDT): Patient with very rare episode of acid reflux that responds well to Pepcid when needed Seizure disorder 01/21/2016 Assessment & Plan (03/20/2025 9:02 AM EDT): Patient diagnosed with seizure disorder in her early 20s. She states that over the course of her diagnosis she has only experienced 3 seizures, the last one being close to 20 years ago. She is maintained on regimen of Trileptal 300 mg twice daily. Patient has plans to continue following with her neurologist yearly in [place]. High cholesterol 09/13/2007 Assessment & Plan (03/20/2025 9:01 AM EDT): In review of prior notes patient has suffered from familial hypercholesterolemia. Subsequently utilizing rosuvastatin 40 mg nightly. Patient's lipids last checked 3 months ago with total cholesterol 192, triglycerides 61, HDL 68 and LDL 113 Resolved Problems Problem Noted Date Diagnosed Date Resolved Date Morbid obesity with BMI of 40.0-44.9, adult 10/29/2016 03/14/2025 Nuchal cord 02/28/2016 03/01/2016 Oligohydramnios in third tri mester, antepartum 02/11/2016 04/10/2016 Supervision of normal first 01/31/2016 04/10/2016 Overview (02/07/2016): gender: male classes discussed: Circumcision: yes Business Process Consultant: [employer] Baby's name: Chirag Breast/bottle feeding: Breast Genetic testing discussed Genetic testing chosen? Tdap discussed: Tdap vaccine received: Flu vaccine discussed: Flu vaccine received: Incompetent cervix 01/31/2016 6 GDMA1 - BBY 01/28/2016 04/10/2016 Seizure disorder during preg arnoldo in third trimester, antepartum 01/28/2016 04/10/2016 Anxiety - [facility] managing 11/18 Encounters Date Type Department Care Team Description 03/20/2025 [facility] [address] [place] [address] [address] [place] [phone] Ifeoma Martinez APRN 03/15/2025 Patient rounding ([facility] only) [facility] [address] [place] [address] [place] [phone] Tatiana Mays 03/14/2025 9:00 AM EDT Office Visit [facility] [address] [place] [address] [place] [phone] Ifeoma Martinez, MACHINE COMPOSITOR Cigarette smoker (Primary Dx); Reactive depression; History of bariatric surgery; Seizure disorder; Gastroesophageal reflux disease without esophagitis; PCOS (polycystic ovarian syndrome); Persistent depressive disorder; High cholesterol; Encounter to [facility] care 03/14/2025 Travel from Last 3 Months Immunizations Immunization Administration Dates Next Due COVID-19 ([employer]) Purple Cap Monovalent 11/05/19 21 Flu Vaccine Split Quad 06/20/2020,07/07/2019, Fluzone (or Fluarix & Flulav al for VFC) >6mos 07/14/2021 Fluzone Quad >6mos (Multi-dose) 06/15/2017 Family History Medical History Relation Name Comments Diabetes Father Nat Membreno Hyperlipidemia Father Nat Membreno Kidney disease Father Nat Membreno Kidney raymundo splant in 2022 Hyperlipidemia Maternal Grandfather Ed Haseeb Diabetes Maternal Grandmother February Camilla Haseeb Diabetes Paternal Grandmother Gloria Schmidt Relation Name Status Comments Father Nat Membreno Alive Maternal Grandfather Antonio Membreno Alive Maternal Grandmother February Camilla Haseeb Alive Paternal Grandmother Gloria Schmidt Alive Social History Tobacco Use Types Packs/Day Years [...] Recorded Current Living Arrangements Not on file 10/0 05/2023 Potentially Unsafe Housing Conditions Not on [...] on file Sexual Orientation Not on file Last Filed Vital Signs Vital Sign Reading Time Taken Comments Blood Pressure 104/70 03/14/2025 9:00 AM EDT Pulse 89 03/14/2025 9:00 AM EDT Temperature 36.9 C (98.4 F) 03/14/2025 9:00 AM EDT Respiratory Rate 14 01/26/2022 10:08 AM EDT Oxygen Saturation 99% 03/14/2025 9:00 AM EDT Inhaled Oxygen Concentration - - Weight 67.1 kg (148 lb) 03/14/2025 9:00 AM EDT Height 165.1 cm (5' 5 ) 03/14/2025 9:00 AM EDT Body Mass Index 24.63 03/14/2025 9:00 AM EDT Plan of Treatment Upcoming Encounters Date Type Department Care Team (Late st Contact Info) Description 04/02/2025 8:00 AM EDT Office Visit [facility] [address] [place] [address] [place] [address] Lynette Hinojosa, BOARD RUNNER [address] [place] [address] 06/14/2025 8:00 AM EDT Office Visit [facility] [address] [place] [address] [place] [address] Ifeoma Martinez APRN [address] [place] [address] Health Maintenance Due Date Last Done Comments TDAP/TD VACCINES (1 - Tdap) 2007 ANNUAL PHYSICAL 06/04/2016 Annual Gynecologic Pelvic and Breast Exam 01/27/2023 01/26/2022, 03/27/2019 PAP SMEAR 11/26/2023 11/25/2020, 03/13, 11/12/2017 COVID-19 Vaccine ( season) 2024 09/19/2021, 11/26/2020, 11/05/2020 INFLUENZA VACCINE 06/13/2025 06/08/2022, , 06/20/2020, Additional history exists LIPID PANEL 11/30/2025 11/30/2024, 11/12, 08/09/2024, Additional history exists Pneumococcal Vaccine 0-49 Aged Out 06/08/2022 No longer eligible based on patient's age to complete this topic HEPATITIS C SCREENING Completed 03/09/2023, 023 Procedures Procedure Name Priority Date/Time Associated Diagnosis Comments PAP IG, RFX HPV ASCU (P&C LAB) Routine 11/25/2020 Annual [facility] exam SCANNED - PAP SMEAR 03/27/2019 LIPID PANEL Routine 03/26/2014 11:19 AM EDT from Last 3 Months or Most Recently Relevant to Health Maintenance Results * Pap IG, Rfx HPV ASCU (11/25/2020) Specimen from cervix or vagina / Unknown us Harvey Howell MD PATHOLOGY/CYTOLOGY ORDERAB LES Final Result [facility]
[address] [place] [address], [place] [phone] * SCANNED - PAP SMEAR (03/27/2019) Harvey Howell MD CHART REVIEW TABS Final Result * (ABNORMAL) Lipid panel (03/26/2014 11:19 AM EDT) Total Cholesterol 241(H) 0 - 200 mg/dL [facility] Comment: DF by IF @ 03/26/2014 11:57 Cholesterol Reference Ranges: Desirable: less than 200 mg/dL Borderline: 200-239 mg/dL High: greater than 239 mg/dL Triglycerides 98 0 - 150 mg/dL [facility] Comment: DF by IF @ 03/26/2014 11:57 Triglyceride Reference Ranges: Normal less than 150 mg/dL Borderline 150-199 mg/dL High 200-499 mg/dL Very High greater than 499 mg/dL HDL Cholesterol 39(L) 40 - 60 mg/dL [facility] Comment: DF by IF @ 03/26/2014 11:57 HDL Cholesterol Reference Ranges: Low less than 40 mg/dL High greater than 59 mg/dL LDL Cholesterol 195(H) 0 - 130 mg/dL [facility] Comment: [place] by IF @ 03/26/2014 11:57 LDL Cholesterol Reference Ranges: Optimal less than 100 mg/dL Near Optimal 100-129 mg/dL Borderline 130-159 mg/dL High 160-189 mg/dL Very High greater than 189 mg/dL Blood specimen (specimen) 03/26/2014 11:19 AM EDT Narrative [facility] - 03/26/2014 11:57 AM EDT Specimen Type: Blood Vikas Lugo MD LAB BLOOD ORDERABLES Final R esult [facility] [place] [address], from Last 3 Months or Most Recently Relevant to Health Maintenance Insurance [employer] [place]ICA[place] Advance Directives * Full Code (Latest Code Status on File) Date Activated Date Inactivated Comments 02/27/2016 6:30 PM 03/01/2016 2:46 PM * Full Code Date Activated Date Inactivated Comments 02/24/2016 2:09 PM 02/24/2016 7:22 PM Care Teams Chain Link Fence Installer Relationship Specialty Start Date End Date Bárbara Gtz MD PCP - General Internal Medicine 11/12/17
--- OUTSIDE RECORDS SUMMARY | 2025-03-30 19:57 | XMS_ITS | Encounter Summary ---
Author Organization [facility] Address [address] [place] [address] Care Team Providers Care Side Piece Coverer Name Role Phone Bárbara Gtz MD Primary Care Provider +1- Encounter Details Date Type Department Care Team (Late st Contact Info) Description 03/15/2025 Patient rounding ([facility] only[place] [facility] [address] [place] [address] [place] [address] Tatiana Mays Social History Tobacco Use Types Packs/Day Years [...] on file documented as of this encounter Progress Notes * Tatiana Mays - 03/15/2025 3:08 PM EDTSummary: ROUNDING ..A [employer] message has been sent to the patient for patient rounding with [facility]. documented in this encounter Plan of Treatment Upcoming Encounters Date Type Department Care Team (Late st Contact Info) Description 04/02/2025 8:00 AM EDT Office Visit [facility] [address] [place] [address] [place] [address] Lynette Hinojosa LCSW [address] [place] [address] 06/14/2025 8:00 AM EDT Office Visit [facility] [address] [place] [address] [place] [phone] Ifeoma Martinez APRN [address] [place] [address] documented as of this encounter Visit Diagnoses Not on filedocumented in this encounter Care Teams Side Piece Coverer Relationship Specialty Start Date End Date Bárbara Gtz MD PCP - General Internal Medicine 11/12/17 documented as of this encounter
--- OUTSIDE RECORDS SUMMARY | 2025-03-30 19:57 | XMS_ITS | Clinical Summary ---
Author Organization [facility] Address [address] [place] [address] Care Team Providers Care Hydraulic Billet Maker Name Role Phone Sarahy Tracie Cat APRN Primary Care Provider [phone] Allergies No known active allergies Medications levonorgestrel (MIRENA) 20 MCG/24HR IUD 1 each by Intrauterine route once Active Multiple Vitamins-Minerals (MULTIPLE VITAMINS/WOMENS PO) Take 2 tablets by mouth daily Active loratadine (CLARITIN) 10 MG tablet Take by mouth. Activ e APPLE CIDER VINEGAR PO Take by mouth. Acti ve docusate sodium (COLACE) 100 MG capsule Take 1 tablet by mouth daily. Active ergocalciferol (VITAMIN D) 1.25 MG (81323 UT) capsule Take 1 capsule by mouth every 7 days. 5 capsule 11 12/05/19 23 Active WEGOVY 1.7 MG/0.75ML NADIYA A-IJIndications:Mo rbid obesity with BMI of 40.0-44.9, adult Inject 1.7 mg into the skin once a week subcutaneously in the abdomen, thigh or upper arm.. 2 mL 11 02/15/20 24 Active SERTRAline (ZOLOFT) 50 MG tablet Take 1 tablet by mouth daily. 90 tablet 3 5 1:05 PM EDT 04/21/20 24 025 Active rosuvastatin (CRESTOR) 40 MG tabletIndications: Hyperlipidemia, unspecified hyperlipidemia type Take 1 tablet by mouth nightly. 90 tablet 1 5 1:05 PM EDT 08/11/20 24 025 Active metFORMIN (GLUCOPHAGE) 1000 MG tabletIndications: Metabolic syndrome Take 1 tablet by mouth 2 (two) times daily with meals. 180 tablet 1 5 1:05 PM EDT 10/16/19 25 026 Active folic acid (FOLVITE) 1 MG tablet Take 3 tablets (3mg) by mouth once daily. 270 tablet 3 5 1:05 PM EDT 10/16/19 25 Active nicotine (NICODERM CQ) 14 MG/24HRIndications :Cigarette smoker Apply 1 patch onto the skin once daily for smoking cessation. Remove old patch prior to placing new patch each day. 28 patch 1 5 12:30 PM EST 10/17/19 25 Active OXcarbazepine (TRILEPTAL) 600 MG tablet Take 1 tablet by mouth twice daily 180 tablet 3 02/27/20 25 026 Active Active Problems Patient Care Coordination No te Formatting of this note migh t be different from the original. ORACLE TECHNICAL DEVELOPER Dr. 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 Not pathologic. No surveillance needed. Obesity (BMI 30.0-34.9) 12/07/2022 Vitamin D deficiency 12/07/2022 Cigarette smoker 11/25/2020 Metabolic syndrome 02/07/2020 Ketogenic diet 06/06/2019 Epilepsy undetermined as to focal or generalized 06/06/2019 Seasonal allergic rhinitis due to pollen 018 Anxiety 12/15/2017 High cholesterol 08/12/2017 Intrauterine device 04/23/2016 Overview (11/08/2023): Overview: Placed 04/23/2016 <paragraph>Overview: </paragraph><content><content> </content>
</br> Placed 04/23/2016 and replaced on 04/21/21</content>
</br> Seizure disorder 01/21/2016 S/P gastric sleeve procedure 09/13/2013 Overview (02/15/2024): Max weight 300 lbs. Post surgery 215 lb. 2023- now on semaglutide. Resolved Problems Problem Noted Date Diagnosed Date Resolved Date Morbid obesity with BMI of 40.0-44.9, adult 08/12/2017 02/15/2024 Thyromegaly 08/12/2017 11/08/2023 GI bleed 11/17/2016 11/08/2023 Overview (11/08/2023): Unknown cause GERD (gastroesophageal reflux disease) 01/21/2016 02/15/2024 Immunizations Immunization Administration Dates Next Due COVID-19 PFIZER MONOVALENT A GES 12 AND OLDER 09/19/2021 COVID-19 Pfizer PURPLE Ages 12 and Older 11/26/2020,11/05/2020 HEP B, ADJUVANTED (HEPLISAV-B) 02/15/2024,2023 Influenza Vaccine Quadrivalent Pf 2021,07/14/2021,06/20/2020,2018,05/31/2018 Influenza Vaccine Quadrivale nt W/ Preservative 06/15/2017 Influenza Vaccine Tri (IM) 06/20/2020,07/07/2019 ,05/31/2018 Influenza Vaccine Tri (IM) PF 06/15/2017 Pneumococcal Conjugate 20-Valent 06/08/2022 Family History Medical History Relation Comments Hypertension Brother Osteoarthritis Brother Sleep apnea Brother CAD Father CABG/IN CAD/CHD <60yo Father Diabetes Father Hyperlipidemia Father Kidney failure Father Kidney Transplan t Cancer, Other or Unknown Type Maternal Grandfath er Lung cancer Maternal Grandfather Diabetes Maternal Grandmother Goiter Maternal Grandmother Aneurysm Mother brain, behind ey e Arthritis Mother Other Mother cyst on thyroid Heart attack Paternal Grandfather Hyperlipidemia Paternal Grandfather Diabetes Paternal Grandmother Seizures Neg Hx Relation Status Comments Brother Alive Father Alive Maternal Grandfather Maternal Grandmother Alive Mother Alive Paternal Grandfather Paternal Grandmother Social History Tobacco Use Types Packs/Day Years Used Date Smoking Tobacco: Every Day Cigarettes 0.5 13 Passive Smoke Exposure: Current Smokeless Tobacco: Never Tobacco Cessation:Ready to Q uit: Yes; Counseling Given: Yes Alcohol Use Standard Drinks/Week Comments Yes 0 (1 standard drink = 0.6 oz pur e alcohol) occassional/social Comments No Sex and Gender Information Value Date Recorded Sex Assigned at Not on file Legal Sex Female 3:51 PM EST Gender Identity Not on file Sexual Orientation Not on file Last Filed Vital Signs Vital Sign Reading Time Taken Comments Blood Pressure 132/93 10/20/2024 12:06 PM EST Pulse 76 10/20/2024 12:06 PM EST Temperature 36.6 C (97.8 F) 10/20/2024 12:06 PM EST Respiratory Rate 18 10/20/2024 12:06 PM EST Oxygen Saturation 98% 10/20/2024 12:06 PM EST Inhaled Oxygen Concentration - - Weight 66.7 kg (147 lb 0.8 oz) 10/20/2024 12:06 PM EST Height 165.1 cm (5' 5 ) 10/17/2024 8:09 AM EST Body Mass Index 24.47 10/17/2024 8:09 AM EST Plan of Treatment Upcoming Encounters Date Type Department Care Team (Late st Contact Info) Description 05/04/2025 11:30 AM EDT Office Visit [facility] Neurology [address] [facility] [address] [place] [address] Dominique Ugalde, BISHOP [address] [facility] [address] [place] [address] Health Maintenance Due Date Last Done Comments HPV Vaccine (1 - 3-dose SCDM series) 2015 Annual SDOH Screening 09/13/2024 Influenza Vaccine (#1) 2025 , 07/14/2021, 06/20/2020, Additional history exists Tdap/Td Vaccine >11 yo (2 - Td or Tdap) 06/15/2026 06/15/2016 Cervical Cancer Screening 02/24/20272023, 03/11/2023, 11/11/2020 (Done at another facility), Additional history exists Pneumococcal Vaccines 6-49 yo Risk Completed 06/08/2022 Hepatitis B (HepB) Vaccine Completed 02/15/2024, Haemophilus Influenzae Type B (Hib) Vaccine Aged Out No longer eligible based on patient's age to complete this topic Hepatitis A (HepA) Vaccine Aged Out N o longer eligible based on patient's age to complete this topic Meningococcal ACWY Aged Out No longer eligible based on patient's age to complete this topic Polio (IPV) Aged Out No longer eligi ble based on patient's age to complete this topic Rotavirus (RV) Vaccine Aged Out No lo nger eligible based on patient's age to complete this topic Procedures Procedure Name Priority Date/Time Associated Diagnosis Comments PAP SMEAR Routine 02/25/2024 4:37 PM EDT Visit for gynecologic examination from Last 3 Months or Most Recently Relevant to Health Maintenance Results * Pap Smear (02/25/2024 4:37 PM EDT) Pathology SPECIMEN FROM UTERINE CERVIX / Unknown 02/25/2024 4:37 PM EDT 02/25/2024 10:04 PM EDT Comment:THINPREP ENDOCERVICA L/CERVICAL Narrative [facility] - 03/07/2024 2:59 PM EDT RE[facility] IS NOT A SUBSTITUTE FOR DISCUSSING THOSE RESULTS WITH YOUR HEALTH CARE PROVIDER. PLEASE CONTACT YOUR PROVIDER [facility] TO DISCUSS ANY QUESTIONS OR CONCERNS YOU MAY HAVE REGARDING THESE TEST RESULTS. Patient Name: TRACIE GRIFFITH [facility] [address] [facility], [address] [address] GYNECOLOGIC CYTOLOGY REPORT DIAGNOSIS: NEGATIVE (No evidence of intraepithelial lesions or malignancy) SPECIMEN ADEQUACY: Satisfactory for evaluation: Endocervical cells present. Interpretation performed at: [facility] [address] [facility], [address] [place] [id number] Test Name Result Result Date/Time Result Flag . HPV High Risk Negative 02/28/2024 22:15 Reference range for HPV high risk testing is Negative. Testing by [facility] HPV high risk for human papillomavirus high risk types(16,18,31,33,35,39,45,51,52,56,58,59,66 and 68) TEST INFORMATION: Human papillomavirus (HPV) high risk specific HPV genotypes have been shown to be associated with certain anogenital diseases including cervical carcinoma and its predisposing lesions. COMMENTS/RECOMMENDATIONS: Results of this test should be used in conjunction with clinical and cytology findings. This test only detects 14 of the most common high-risk HPV types and cannot differentiate between individual strains. This test has been approved by the [place] food and drug administration (FDA) for use in clinical settings and its performance has been tested and validated by [facility] on clinical samples. SPECIMEN SOURCE: THINPREP ENDOCERVICAL/CERVICAL CLINICAL HISTORY: REASON FOR PAP ROUTINE CLINICAL HISTORY NORMAL EXAM DATE OF LAST PAP 03/11/2023 LAST PAP SMEAR RESULTS NORMAL LAST MENSTRUAL PERIOD: PREVIOUS PAP RESULTS: [id number] 03/18/2023 NEGATIVE (No evidence of intraepithelial lesions or malignancy) Pap smear testing is subject to false negative and false positive results. This result should be interpreted in conjunction with history and clinical findings. ThinPrep specimens have been analyzed by the ThinPrep Imaging System ([employer] [facility]), an automated imaging and review system. Top Lift Nailer: Amol Martins MD Director of Cytopathology: Chuyita Nails MD us Lili Mcclure MD PATHOLOGY/CYTOLOGY ORDERABLE S Final Result [facility] [address] [place] [address], [facility] [phone] from Last 3 Months or Most Recently Relevant to Health Maintenance Insurance MEDICA[place] Member Subscriber Plan / Payer (Ef fective 2025-Present) Name:Tracie Griffith Relation to Subscriber:Self Name:Tracie Griffith Payer ID:[id number] Group ID:Not on file Type:Medicaid Address: [place] [address] Advance Directives Documents on File Type Date Recorded Patient Pricing Coordinator Expl anation Power of Theatrical Trouper 04/29/2017 6:55 AM * Full Code (Latest Code Status on File) Date Activated Date Inactivated Comments 11/18/2016 3:30 PM 11/18/2016 7:21 PM * Full Code Date Activated Date Inactivated Comments 11/17/2016 11:17 PM 11/18/2016 3:30 PM Care Teams Hydraulic Billet Maker Relationship Specialty Start Date End Date Tracie Weathers APRN [address] [place] [address] PCP - General Nurse Practitioner 11/08/23
--- OUTSIDE RECORDS SUMMARY | 2025-03-30 19:57 | XMS_ITS | Encounter Summary ---
Author Organization [facility] Address [address] [place] [address] Care Team Providers Care Buckle Frame Shaper Name Role Phone Bárbara Gtz MD Primary Care Provider +1- Reason for Visit * Reason Onset Date Comments Med Refill 03/20/2025 Encounter Details Date Type Department Care Team (Late st Contact Info) Description 03/20/2025 Refill [facility] [address] [place] [id number] Ifeoma Martinez APRN [address] [place], [place] [id number] Social History Tobacco Use Types Packs/Day Years [...] on file documented as of this encounter Miscellaneous Notes * Telephone Encounter - Shani Lamar RegSched Rep - 03/20/2025 8:16 AM EDT Caller: Tracie Griffith Relationship: Self Best call back number: [phone] Requested Prescriptions: Requested Prescriptions Pending Prescriptions Disp Refills Semaglutide-Weight Management (Wegovy) 1.7 MG/0.75ML solution auto-injector Pharmacy where request should be sent: [facility] [place] [address] [facility] - [phone] - [phone] FX Last office visit with prescribing clinician: 03/14/2025 Last telemedicine visit with prescribing clinician: Visit date not found Next office visit with prescribing clinician: 06/14/2025 Additional details provided by patient: PATIENT STATES THE THE PHARMACY DID NOT RECEIVE THE PRESCRIPTION Does the patient have less than a 3 day supply: [x] Yes [] No Would you like a call back once the refill request has been completed: [x] Yes [] No If the office needs to give you a call back, can they leave a voicemail: [x] Yes [] No Josh Diaz 03/20/25 08:18 EDT documented in this encounter Plan of Treatment Upcoming Encounters Date Type Department Care Team (Late st Contact Info) Description 04/02/2025 8:00 AM EDT Office Visit [facility] [address] [place] [address] [place] [address] Lynette Hinojosa LCSW [address] [place] [address] 06/14/2025 8:00 AM EDT Office Visit [facility] [address] [place] [address] [place] [address] Ifeoma Martinez APRN [address] [place] [address] documented as of this encounter Visit Diagnoses Not on filedocumented in this encounter Care Teams Buckle Frame Shaper Relationship Specialty Start Date End Date Bárbara Gtz MD PCP - General Internal Medicine 11/12/17 documented as of this encounter
--- OUTSIDE RECORDS SUMMARY | 2025-03-30 19:57 | XMS_ITS | Patient Health Record ---
Author Organization [facility] Address [address] [place] [address] Care Team Providers Care Career Coach Name Role Phone SarahyTracie Primary Care Provider [place] [facility] [place], [address] Unavailable [phone] Lynda Neal Unavailable [phone] Allergies No Known Allergies Reason For Referral No Information Medications Medication SIG (Take, Route, Frequency, Duration) Notes Start Date End Date Status Wegovy 1.7 MG/0.75ML 0.75 mL Subcutaneous Active Crestor 20 MG 1 tablet Orally Once a day Active Zoloft 50 MG 1 tablet Orally Once a day Active OXcarbazepine 600 MG 1 tablet Orally Twi ce a day Active Folic Acid 1 MG 1 tablet Orally Once a day Active Claritin 10 MG 1 tablet Orally Once a day Active Colace 100 MG 1 capsule as needed Orally Once a day Active Mucinex 600 MG 1 tablet as needed O rally every 12 hrs prn Active NyQuil Cough DM + Congestion 5-6.25-10 MG/15ML as directed Orally prn Active metFORMIN HCl 1000 MG 1 tablet with a me al Orally Once a day Active Vital Signs Temperature 98.5 degrees Fahrenheit 05/18/2024 Respiratory Rate 18 /min 05/18/2024 Oximetry 98 05/18/2024 Blood pressure diastolic 72 mm Hg 05/18/2024 Height 65 in 05/18/2024 Blood pressure systolic 116 mm Hg 05/18/2024 Weight 160 lbs 05/18/2024 BMI 26.62 kg/m2 05/18/2024 Encounters Encounter Location Date Provider Diagnosis [facility] [address] [place] [address] [place] [address] 05/18/2024 Lynda Neal Otitis media of right ear H66.91 and Viral URI with cough J06.9 Assessments Encounter Date Diagnosis (ICD Code) Assessment Notes Treatment Notes Treatment Clinical Notes Section Notes 05/18/2024 Viral URI with cough (ICD-10 - J06.9) 05/18/2024 Otitis media of right ear (ICD-10 - H66.91) Plan Of Treatment No Information Insurance Providers Payer Name Payer Address Payer Phone Subscriber Number Group Number Insured Name Patient Relationship to Insured Coverage Start Date Coverage End Date [employer] [address] [place] [address] [id number] Tracie Griffith Self - patient is the insured Medical (General) History Medical History History ICD Code seizures high cholesterol
--- OUTSIDE RECORDS SUMMARY | 2025-03-30 19:57 | XMS_ITS | Clinical Summary ---
Author Organization [facility] Address [facility] [place] [address] Care Team Providers Care Solar Installer Name Role Phone Dominique Ugalde INDUSTRIAL AUTOMATION ENGINEER Unavailable [phone] Bárbara Gtz Primary Care Provider [phone] Source Comments This information has been disclosed to you from confidential records protectedfrom disclosure by state law. You shall make no further disclosure of thisinformation without the specific, written, and informed release of theindividual to whom it pertains, or as otherwise permitted by law. A generalauthorization for the release of medical or other information is not sufficientfor the purposes of therelease of HIV test results or diagnoses. [id number] Allergies No known active allergies Medications sertraline (ZOLOFT) 50 MG tabletIndicati ons:anxiety,de pression Take 1.5 tablets (75 mg total) by mouth daily. Indications: anxiety, depression 3 Active WEGOVY 2.4 mg/0.75 mL PnIjIndication s:Pre-diabetic , assist with weight loss Inject 0.75 mLs (2.4 mg total) subcutaneously once a week. Indications: Pre-diabetic, assist with weight loss 3 Active rosuvastatin (CRESTOR) 40 MG tablet Take 1 tablet (40 mg total) by mouth daily. 3 Active OXcarbazepine (TRILEPTAL) 600 MG tablet Take 1 tablet (600 mg total) by mouth 2 times a day. 3 Active folic acid (FOLVITE) 1 MG tablet Take 3 tablets (3 mg total) by mouth daily. 3 Active docusate sodium (COLACE) 100 MG capsule Take 1 capsule (100 mg total) by mouth daily. Active cetirizine (ZYRTEC) 10 MG tabletIndicati ons:seasonal allergy Take 1 tablet (10 mg total) by mouth daily. Indications: seasonal allergy Active levonorgestrel (MIRENA IU)Indications :due in 2028 by Intrauterine route. Indications: due in 2028 2 Active Family History Medical History Relation Comments Hypertension Brother Sleep apnea Brother Diabetes Father Hyperlipidemia Father Hypertension Father Kidney disease Father Stage 4, not on dialysis Lung Cancer Maternal Grandfather COD: Smoker smoker Maternal Grandfather Diabetes Maternal Grandmother Hypertension Mother Heart attack Paternal Grandfather COD Hyperlipidemia Paternal Grandfather oral cancer Paternal Grandmother COD: Gum di sease No Known Problems Son Relation Status Comments Brother Alive Father Alive Maternal Grandfather Maternal Grandmother Alive Mother Alive Paternal Grandfather Paternal Grandmother Son Alive Social History Tobacco Use Types Packs/Day Years Used Date Smoking Tobacco: Every Day Cigarettes 0.5 15 Started: 2004; Last attempted to quit: 2013 Smokeless Tobacco: Never Tobacco Cessation:Ready to Q uit: Yes; Counseling Given: Yes Comments:Started smoking 0580-8968; Resumed smoking 2016, willing to cease. Alcohol Use Standard Drinks/Week Comments Not Currently 0 (1 standard drink = 0.6 oz pure alcohol) Special Events otherwise no ETOH use PHQ-2 Answer Date Recorded PHQ-2 Total Score 0 03/18/2023 Exercise Vital Sign Answer Date Recorde d On average, how many days pe r week do you engage in moderate to strenuous exercise (like a brisk walk)? 0 days 02/11/2023 On average, how many minutes do you engage in exercise at this level? 0 min 02/11/2023 Education Answer Date Recorded What is the highest level of school you have completed or the highest degree you have received? 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 Not on file Not on file Last Filed Vital Signs Vital Sign Reading Time Taken Comments Blood Pressure 115/71 03/09/2023 8:31 AM EDT Pulse 84 03/09/2023 8:27 AM EDT Temperature 36.8 C (98.2 F) 03/09/2023 8:27 AM EDT Respiratory Rate - - Oxygen Saturation 99% 03/09/2023 8:27 AM EDT Inhaled Oxygen Concentration 99% 03/09/2023 8 :27 AM EDT Weight 72.1 kg (159 lb) 03/09/2023 8:27 AM EDT Height 165.1 cm (5' 5 ) 03/09/2023 8:27 AM EDT Body Mass Index 26.46 03/09/2023 8:27 AM EDT Plan of Treatment Health Maintenance Due Date Last Done Comments Alcohol Misuse Screening 2006 Immunization: DTaP/Tdap/Td ( 1 - Tdap) 2007 Immunization: Hepatitis B (1 of 3 - 19+ 3-dose series) 2007 Cervical Cancer Screening/Pa p Smear (MyChart) 2018 Depression Screening 03/18/2024 03/18/2023 Immunization: COVID-19 ( season) 2024 09/19/2021, 11/26/2020, 11/05/2020 Immunization: Influenza (MyC barry) (#1) 2025 06/08/2022, 07/14/2021, 06/20/2020, Additional history exists Immunization: Pneumococcal Completed 06/08/2022 HIV Screening Completed 03/09/2023 Hepatitis C Screening (MyChart) Completed 3 Procedures Procedure Name Priority Date/Time Associated Diagnosis Comments HIV 1+2 ANTIBODY/ANTIGEN WITH REFLEX Routine 03/09/2023 8:10 AM EDT Kidney donor Routine history and physical examination of adult HEPATITIS C ANTIBODY Routine 03/09/2023 8:10 AM EDT Kidney donor Routine history and physical examination of adult from Last 3 Months or Most Recently Relevant to Health Maintenance Results * Hepatitis C antibody (03/09/2023 8:10 AM EDT) HCV Ab Nonreactive Nonreactive 03/09/2023 9:41 AM EDT [facility] Comment:Health Department no tified in accordance with reportable infectious disease guidelines. Serum 03/09/2023 8:10 AM EDT 03/09/2023 8:15 AM EDT [facility] - 03/09/2023 9:41 AM EDT tv urine 2000 ml Antibodies to HCV not detected; does not exclude the possibility of exposure to HCV. [employer] [facility] BLOOD ORDERABLES Fin al Result Performing Organization Address [facility]/ZIP Co de Phone Number [facility] [address] * HIV-1 and HIV-2 antibodies (03/09/2023 8:10 AM EDT) HIV 1+2 AB/AGN Nonreactive Nonreactive 03/09/2023 9:34 AM EDT [facility] Serum 03/09/2023 8:10 AM EDT 03/09/2023 8:16 AM EDT [facility] - 03/09/2023 9:34 AM EDT tv urine 2000 ml HIV-1 p24 Antigen and HIV-1/HIV-2 Antibody not detected. [employer] [facility] BLOOD ORDERABLES Fin al Result Performing Organization Address City/[facility]/ZIP Co de Phone Number [facility] [address] from Last 3 Months or Most Recently Relevant to Health Maintenance Insurance [facility] [employer] [address] ACCESS MEDICARE A AND B Member Subscriber Plan / Payer (Ef fective 2017-Present) Name:Tracie Griffith Jessica Relation to Subscriber:Organ Donor Name:JASSI SWARTZ Date of :1954 Address: [address] [place] [address] Payer ID:[id number] Group ID:Not on file Type:Medicare Address: [address] Advance Directives For more information, please contact: [phone] Documents on File Type Date Recorded Patient Supervisor Paper Machine Expl anation Living Will Testament - scan 05/21/2023 4:51 PM Living Will Living Will Testament - scan 03/22/2023 11:38 AM living will Care Teams Solar Installer Relationship Specialty Start Date End Date Bárbara Gtz [address] [place] [address] PCP - General Internal Medicine 02/11/23 Dominique Ugalde APRN [address] [place] [address] Nurse Practitioner Neurology 02/11/23
[2025-03-30 20:10] LABS: Hematocrit 38.8 % (37.0-47.0); Hemoglobin 13.2 g/dL (12.2-16.2); Immature Granulocytes % 0.1 %; Mean Corpuscular HGB Conc 34.0 g/dL (31.8-35.4); Mean Corpuscular Hemoglobin 33.1 pg (27.0-31.2); Mean Corpuscular Volume 97.2 fl (81-99); Nucleated Red Blood Cells % 0 %; Platelet Count 303 K/mm3 (142-424); Red Blood Count 3.99 M/mm3 (4.20-5.40); Red Cell Distribution Width-SD 42.0 fL; White Blood Count 6.9 K/mm3 (4.8-10.8)
[2025-03-30 20:13] LABS: Alanine Aminotransferase 77 U/L (12-78); Albumin Level 4.2 g/dl (3.5-5.0); Albumin/Globulin Ratio 1.6 (1.1-1.8); Alkaline Phosphatase 64 U/L (38-126); Anion Gap 9.7 mEq/L (5-15); Aspartate Amino Transferase 52 U/L (14-36); Bilirubin,Total 0.4 mg/dl (0.2-1.3); Blood Urea Nitrogen 8 mg/dl (7-17); Calcium 9.6 mg/dl (8.4-10.2); Carbon Dioxide 28 mmol/L (22.0-30.0); Chloride 103 mmol/L (98-107); Creatinine,Serum 0.60 mg/dl (0.52-1.04); Estimated Glomerular Filt Rate 113 ml/min (>60); GFR (African American) 137 ML/MIN (>60); Globulin 2.7 g/dL (1.3-3.2); Glucose 96 mg/dl (74-100); Lipase 45 U/L (23-300); Magnesium 2.1 mg/dl (1.6-2.3); Potassium 3.7 mmoL/L (3.5-5.1); Sodium 137 mmol/L (136-145); Total Protein,Serum 6.9 g/dl (6.3-8.2)
[2025-03-30 20:16] LABS: Microscopic, Urine URINE MICROSCOPIC (MICROSCOPIC)
[2025-03-30 20:19] LABS: Bilirubin,Urine Negative (Negative); Color,Urine YELLOW (Yellow); Glucose,Urine (UA) Negative (Negative); Ketones,Urine Negative (Negative); Leukocyte Esterase,Urine Negative (Negative); PH,Urine 6.0 (5.0-8.5); Protein,Urine Negative (Negative); Specific Gravity, Urine 1.015 (1.005-1.030); Urobilinogen,Urine 0.2 EU/dl (0.2)
[2025-03-30] MEDS: 0.9 % SODIUM CHLORIDE 1000ML 1,000 ML 999 ML IV (20:21)
[2025-03-30] MEDS: ACETAMINOPHEN 1,000MG/100ML VIAL 1000 MG IV (20:21)
[2025-03-30] MEDS: FAMOTIDINE 20MG/2ML VIAL 20 MG IV (20:23)
[2025-03-30 20:28] VITALS: BMI 26.3
[2025-03-30 20:30] LABS: Troponin I < 0.01 ng/ml (0.00-0.034)
[2025-03-30 20:50] VITALS: BP 158/109; PULSE 80; RESP 21; TEMP 37; O2SAT 99; BMI 26.2
[2025-03-30 20:51] LABS: RBC,Urine Occasional #/hpf (0-3); WBC,Urine Occasional #/hpf (0-3)
[2025-03-30 20:53] LABS: Bacteria,Urine 2+ /lpf; Mucus,Urine 2+ /lpf; Squamous Epithelial Cell,Urine Occasional #/hpf (0-5)
[2025-03-30 22:48] VITALS: BP 151/97; PULSE 79; RESP 15; TEMP 36.6; O2SAT 98
== END 2025-03-30 22:49 | disposition home or self-care (01) ==
PROVIDERS: Nurse Practitioner; Emergency Provider Student in an Organized Health Care Education/Training Program; PCP Nurse Practitioner
DX: R10.9 Unspecified abdominal pain (principal); E86.0 Dehydration; R03.0 Elevated blood-pressure reading, without diagnosis of hypertension
CPT/HCPCS: 71045; 80053; 81001; 83690; 83735; 84484; 85025; 87086; 96361; 96374; 96375; 99285; J0131; J7030